=== PATIENT | male | born 1935 | race Caucasian/White ===

== ENCOUNTER 2023-03-07 16:19 | Inpatient (IN) | payer MEDICARE, BC ==
[2023-03-15] MEDS ORDERED: Acetaminophen 325 MG TAB PO PRN (14:37)
[2023-03-15] MEDS ORDERED: traMADol HCl 50 MG TAB PO PRN (14:37)
[2023-03-15] MEDS ORDERED: Ondansetron ODT 4 MG TAB SL PRN (16:35)
[2023-03-15] MEDS ORDERED: Bisacodyl 10 MG SUPP PR PRN (16:35)
[2023-03-15] MEDS ORDERED: Dextrose 50% Abboject 50 ML SYRINGE SLOW IVP PRN (16:37)
[2023-03-15] MEDS ORDERED: HumaLOG 300 UNITS/3 ML VIAL SC PRN (16:37)
[2023-03-15] MEDS ORDERED: Glucagon 1 MG/ML KIT IM PRN (16:37)
[2023-03-15] MEDS ORDERED: Potassium Chloride 10 MEQ TAB PO SCH (20:30)
[2023-03-15] MEDS: Rosuvastatin 10 MG TAB PO SCH (21:07)
[2023-03-15] MEDS: Midodrine HCl 5 MG TAB PO SCH (21:07)
[2023-03-15] MEDS: Apixaban 5 MG TAB PO SCH (21:07)
[2023-03-15] MEDS: Tamsulosin HCl 0.4 MG CAP PO SCH (21:07)
[2023-03-15] MEDS: Metoprolol Tartrate 25 MG TAB PO SCH (21:07)
[2023-03-16 06:20] LABS: #Basophils 0.1 thou/uL (0.0-0.2); #Eosinphils 0.4 thou/uL (0.0-0.7); #Lymphocytes 0.5 thou/uL (1.20-3.40); #Monocytes 0.5 thou/uL (0.11-0.59); #Neutrophils 4.1 thou/uL (1.40-6.50); %Basophils 1.6 % (0.0-1.0); %Eosinophils 6.6 % (0.0-10.0); %Lymphocytes 9.6 % (21.0-51.0); %Monocytes 9.1 % (0.0-10.0); %Neutrophils 73.1 % (42.0-75.0); ALT (SGPT) 36 U/L (8-55); AST (SGOT) 19 U/L (5-34); Alkaline Phosphatase 102 U/L (40-110); Anion Gap 13 mmol/L (10-20); BUN (Urea Nitrogen) 18 mg/dL (8.4-25.7); Bilirubin, Total 0.8 mg/dL (0.2-1.2); Calc. Creatinine Clearance 66 mL/min (70-130); Calcium 8.7 mg/dL (7.8-10.44); Carbon Dioxide 31 mmol/L (23-31); Chloride 94 mmol/L (98-107); Estimated GFR 61; Globulin 2.5 g/dL (2.4-3.5); Glucose 155 mg/dL (83-110); Hematocrit 46.2 % (42.0-52.0); Hemoglobin 14.6 g/dL (14.0-18.0); Mean Corpuscular HGB CONC 31.6 g/dL (32.0-36.0); Mean Corpuscular Hemoglobin 30.8 pg (27.0-31.0); Mean Corpuscular Volume 97.4 fl (78.0-98.0); Mean Platelet Volume 6.9 fL (7.4-10.4); Platelet Count 179 10x3/uL (130-400); Protein, Total 5.5 g/dL (5.8-8.1); RBC Distribution Width 14.3 % (11.5-14.5); Red Blood Cell (RBC) Count 4.74 mill/uL (4.70-6.10); Sodium 134 mmol/L (136-145); White Blood Cell (WBC) Count 5.7 10x3/uL (4.8-10.8)
[2023-03-16] MEDS: Potassium Chloride 10 MEQ TAB PO SCH ×3 (11:15→17:39)
[2023-03-16] MEDS: Apixaban 5 MG TAB PO SCH ×2 (11:18→21:09)
[2023-03-16] MEDS: Calcium Carbonate 600 MG + Vit D TAB PO SCH (11:18)
[2023-03-16] MEDS: Metoprolol Tartrate 25 MG TAB PO SCH ×2 (11:18→21:09)
[2023-03-16] MEDS: FLUoxetine HCl 10 MG CAP PO SCH (11:19)
[2023-03-16] MEDS: Torsemide 20 MG TAB PO SCH ×2 (11:19→15:44)
[2023-03-16] MEDS: Tamsulosin HCl 0.4 MG CAP PO SCH (11:19)
[2023-03-16] MEDS: Midodrine HCl 5 MG TAB PO SCH ×3 (11:19→21:09)
[2023-03-16] MEDS: Digoxin 0.125 MG TAB PO SCH (11:20)
[2023-03-16] MEDS: HumaLOG 300 UNITS/3 ML VIAL SC PRN ×2 (11:26→17:40)
[2023-03-16] MEDS ORDERED: Potassium Chloride 10 MEQ TAB PO SCH (11:45)
[2023-03-16] MEDS: Rosuvastatin 10 MG TAB PO SCH (21:09)
[2023-03-17 05:35] LABS: Digoxin 0.57 ng/mL (0.8-2.0)
[2023-03-17] MEDS: HumaLOG 300 UNITS/3 ML VIAL SC PRN ×3 (06:36→17:12)
[2023-03-17] MEDS: Midodrine HCl 5 MG TAB PO SCH ×3 (07:50→21:35)
[2023-03-17] MEDS: Apixaban 5 MG TAB PO SCH ×2 (07:50→21:35)
[2023-03-17] MEDS: Loperamide HCl 2 MG CAP PO PRN (07:50)
[2023-03-17] MEDS: Calcium Carbonate 600 MG + Vit D TAB PO SCH (07:51)
[2023-03-17] MEDS: FLUoxetine HCl 10 MG CAP PO SCH (07:51)
[2023-03-17] MEDS: Torsemide 20 MG TAB PO SCH ×2 (07:51→14:27)
[2023-03-17] MEDS: Digoxin 0.125 MG TAB PO SCH (07:52)
[2023-03-17] MEDS: Potassium Chloride 10 MEQ TAB PO SCH ×2 (07:52→17:10)
[2023-03-17] MEDS: Metoprolol Tartrate 25 MG TAB PO SCH ×2 (07:52→21:35)
[2023-03-17] MEDS: metFORMIN 500 MG TAB PO SCH (17:10)
[2023-03-17] MEDS: Rosuvastatin 10 MG TAB PO SCH (21:35)
[2023-03-17] MEDS: Tamsulosin HCl 0.4 MG CAP PO SCH (21:35)
[2023-03-18] MEDS: HumaLOG 300 UNITS/3 ML VIAL SC PRN ×3 (05:45→17:30)
[2023-03-18] MEDS: Calcium Carbonate 600 MG + Vit D TAB PO SCH (08:40)
[2023-03-18] MEDS: FLUoxetine HCl 10 MG CAP PO SCH (08:40)
[2023-03-18] MEDS: Midodrine HCl 5 MG TAB PO SCH ×3 (08:40→20:07)
[2023-03-18] MEDS: metFORMIN 500 MG TAB PO SCH ×2 (08:40→17:30)
[2023-03-18] MEDS: Torsemide 20 MG TAB PO SCH ×2 (08:41→15:08)
[2023-03-18] MEDS: Metoprolol Tartrate 25 MG TAB PO SCH ×2 (08:42→20:08)
[2023-03-18] MEDS: Digoxin 0.125 MG TAB PO SCH (08:42)
[2023-03-18] MEDS: Apixaban 5 MG TAB PO SCH ×2 (08:42→20:08)
[2023-03-18] MEDS: Potassium Chloride 10 MEQ TAB PO SCH ×2 (08:43→17:30)
[2023-03-18] MEDS: Loperamide HCl 2 MG CAP PO PRN (12:58)
[2023-03-18] MEDS: Tamsulosin HCl 0.4 MG CAP PO SCH (20:07)
[2023-03-18] MEDS: Rosuvastatin 10 MG TAB PO SCH (20:08)
[2023-03-19] MEDS: Calcium Carbonate 600 MG + Vit D TAB PO SCH (08:43)
[2023-03-19] MEDS: metFORMIN 500 MG TAB PO SCH ×2 (08:43→17:30)
[2023-03-19] MEDS: Midodrine HCl 5 MG TAB PO SCH ×3 (08:43→20:42)
[2023-03-19] MEDS: FLUoxetine HCl 10 MG CAP PO SCH (08:43)
[2023-03-19] MEDS: Digoxin 0.125 MG TAB PO SCH (08:44)
[2023-03-19] MEDS: Potassium Chloride 10 MEQ TAB PO SCH ×2 (08:44→17:30)
[2023-03-19] MEDS: Torsemide 20 MG TAB PO SCH ×2 (08:44→14:31)
[2023-03-19] MEDS: Apixaban 5 MG TAB PO SCH ×2 (08:44→20:40)
[2023-03-19] MEDS: Metoprolol Tartrate 25 MG TAB PO SCH ×2 (08:44→20:41)
[2023-03-19] MEDS: HumaLOG 300 UNITS/3 ML VIAL SC PRN (11:59)
[2023-03-19] MEDS: Rosuvastatin 10 MG TAB PO SCH (20:40)
[2023-03-19] MEDS: Tamsulosin HCl 0.4 MG CAP PO SCH (20:40)
[2023-03-20 06:19] LABS: Anion Gap 17 mmol/L (10-20); BUN (Urea Nitrogen) 26 mg/dL (8.4-25.7); CRP (Inflammatory) 4.43 mg/dL (= or < 0.5); Calc. Creatinine Clearance 51 mL/min (70-130); Calcium 8.9 mg/dL (7.8-10.44); Carbon Dioxide 29 mmol/L (23-31); Chloride 94 mmol/L (98-107); Estimated GFR 45; Glucose 158 mg/dL (83-110); Magnesium 1.2 mg/dL (1.6-2.6); Potassium 4.2 mmol/L (3.5-5.1); Sodium 136 mmol/L (136-145)
[2023-03-20] MEDS: Calcium Carbonate 600 MG + Vit D TAB PO SCH (08:12)
[2023-03-20] MEDS: Midodrine HCl 5 MG TAB PO SCH ×3 (08:12→20:51)
[2023-03-20] MEDS: Potassium Chloride 10 MEQ TAB PO SCH ×2 (08:12→16:56)
[2023-03-20] MEDS: Metoprolol Tartrate 25 MG TAB PO SCH ×2 (08:12→20:51)
[2023-03-20] MEDS: Digoxin 0.125 MG TAB PO SCH (08:13)
[2023-03-20] MEDS: metFORMIN 500 MG TAB PO SCH ×2 (08:13→16:56)
[2023-03-20] MEDS: FLUoxetine HCl 10 MG CAP PO SCH (08:13)
[2023-03-20] MEDS: Apixaban 5 MG TAB PO SCH ×2 (08:13→20:51)
[2023-03-20] MEDS: Empagliflozin 10 MG TAB PO SCH (08:14)
[2023-03-20] MEDS: Torsemide 20 MG TAB PO SCH (09:26)
[2023-03-20] MEDS: HumaLOG 300 UNITS/3 ML VIAL SC PRN (11:43)
[2023-03-20 14:39] LABS: Hemoglobin A1c 7.3 % (4.0-6.0)
[2023-03-20] MEDS ORDERED: Magnesium 2 GM/50 ML(in water) 2 GM in Premix Bag 1 BAG IVPB SCH (15:30)
[2023-03-20] MEDS ORDERED: Magnesium Sulfate 4 GM in Sodium Chloride 0.9% 250 ML 250 ML IVPB SCH (15:45)
[2023-03-20] MEDS: Tamsulosin HCl 0.4 MG CAP PO SCH (20:51)
[2023-03-20] MEDS: Rosuvastatin 10 MG TAB PO SCH (20:51)
[2023-03-20] MEDS: Magnesium 2 GM/50 ML(in water) 2 GM in Premix Bag 1 BAG IVPB SCH ×2 (20:57→21:27)
[2023-03-21 06:06] LABS: Anion Gap 15 mmol/L (10-20); BUN (Urea Nitrogen) 29 mg/dL (8.4-25.7); Calc. Creatinine Clearance 46 mL/min (70-130); Carbon Dioxide 30 mmol/L (23-31); Chloride 93 mmol/L (98-107); Estimated GFR 39; Glucose 138 mg/dL (83-110); Potassium 4.1 mmol/L (3.5-5.1); Sodium 134 mmol/L (136-145)
[2023-03-21] MEDS: metFORMIN 500 MG TAB PO SCH ×2 (08:16→17:32)
[2023-03-21] MEDS: Calcium Carbonate 600 MG + Vit D TAB PO SCH (08:16)
[2023-03-21] MEDS: Empagliflozin 10 MG TAB PO SCH (08:16)
[2023-03-21] MEDS: Potassium Chloride 10 MEQ TAB PO SCH ×2 (08:17→17:32)
[2023-03-21] MEDS: FLUoxetine HCl 10 MG CAP PO SCH (08:17)
[2023-03-21] MEDS: Digoxin 0.125 MG TAB PO SCH (08:17)
[2023-03-21] MEDS: Metoprolol Tartrate 25 MG TAB PO SCH ×2 (08:17→22:05)
[2023-03-21] MEDS: Apixaban 5 MG TAB PO SCH ×2 (08:18→21:18)
[2023-03-21] MEDS: Midodrine HCl 5 MG TAB PO SCH ×3 (08:18→21:18)
[2023-03-21] MEDS: Cephalexin 500 MG CAP PO SCH ×2 (08:21→21:18)
[2023-03-21] MEDS: HumaLOG 300 UNITS/3 ML VIAL SC PRN (12:05)
[2023-03-21] MEDS: Rosuvastatin 10 MG TAB PO SCH (21:18)
[2023-03-21] MEDS: Tamsulosin HCl 0.4 MG CAP PO SCH (21:18)
[2023-03-22] MEDS ORDERED: Apixaban 2.5 MG TAB PO SCH (03:12)
[2023-03-22 06:04] LABS: #Basophils 0.1 thou/uL (0.0-0.2); #Eosinphils 0.3 thou/uL (0.0-0.7); #Lymphocytes 0.5 thou/uL (1.20-3.40); #Monocytes 0.8 thou/uL (0.11-0.59); %Basophils 1.4 % (0.0-1.0); %Eosinophils 4.4 % (0.0-10.0); %Lymphocytes 6.2 % (21.0-51.0); %Monocytes 10.6 % (0.0-10.0); %Neutrophils 77.5 % (42.0-75.0); Hematocrit 32.4 % (42.0-52.0); Hemoglobin 11.3 g/dL (14.0-18.0); Mean Corpuscular HGB CONC 34.9 g/dL (32.0-36.0); Mean Corpuscular Hemoglobin 33.7 pg (27.0-31.0); Mean Corpuscular Volume 96.4 fl (78.0-98.0); Mean Platelet Volume 7.7 fL (7.4-10.4); Platelet Count 299 10x3/uL (130-400); RBC Distribution Width 14.3 % (11.5-14.5); Red Blood Cell (RBC) Count 3.36 mill/uL (4.70-6.10); White Blood Cell (WBC) Count 7.8 10x3/uL (4.8-10.8)
[2023-03-22 06:16] LABS: Magnesium 1.8 mg/dL (1.6-2.6); Phosphorus 2.9 mg/dL (2.3-4.7)
[2023-03-22 06:21] LABS: ALT (SGPT) 22 U/L (8-55); AST (SGOT) 15 U/L (5-34); Albumin 3.2 g/dL (3.4-4.8); Alkaline Phosphatase 94 U/L (40-110); Anion Gap 16 mmol/L (10-20); BUN (Urea Nitrogen) 29 mg/dL (8.4-25.7); Bilirubin, Total 0.8 mg/dL (0.2-1.2); Calc. Creatinine Clearance 52 mL/min (70-130); Calcium 8.9 mg/dL (7.8-10.44); Carbon Dioxide 29 mmol/L (23-31); Chloride 95 mmol/L (98-107); Estimated GFR 46; Globulin 2.7 g/dL (2.4-3.5); Glucose 134 mg/dL (83-110); Potassium 4.3 mmol/L (3.5-5.1); Protein, Total 5.9 g/dL (5.8-8.1); Sodium 136 mmol/L (136-145)
[2023-03-22 06:25] LABS: Digoxin 0.82 ng/mL (0.8-2.0)
[2023-03-22] MEDS: FLUoxetine HCl 10 MG CAP PO SCH (08:34)
[2023-03-22] MEDS: Potassium Chloride 10 MEQ TAB PO SCH ×2 (08:34→17:45)
[2023-03-22] MEDS: Cephalexin 500 MG CAP PO SCH ×2 (08:34→21:43)
[2023-03-22] MEDS: Digoxin 0.125 MG TAB PO SCH (08:34)
[2023-03-22] MEDS: Calcium Carbonate 600 MG + Vit D TAB PO SCH (08:34)
[2023-03-22] MEDS: Midodrine HCl 5 MG TAB PO SCH ×3 (08:34→21:43)
[2023-03-22] MEDS: Metoprolol Tartrate 25 MG TAB PO SCH ×2 (08:35→21:44)
[2023-03-22] MEDS: Empagliflozin 10 MG TAB PO SCH (08:36)
[2023-03-22] MEDS ORDERED: Magnesium Chloride 64 MG TAB PO SCH (10:30)
[2023-03-22] MEDS: HumaLOG 300 UNITS/3 ML VIAL SC PRN ×2 (12:16→17:47)
[2023-03-22] MEDS: Torsemide 20 MG TAB PO SCH (12:21)
[2023-03-22] MEDS ORDERED: metFORMIN 500 MG TAB PO SCH (20:30)
[2023-03-22] MEDS: Rosuvastatin 10 MG TAB PO SCH (21:43)
[2023-03-22] MEDS: Apixaban 2.5 MG TAB PO SCH (21:44)
[2023-03-22] MEDS: Magnesium Chloride 64 MG TAB PO SCH (21:47)
[2023-03-23] MEDS ORDERED: metFORMIN 500 MG TAB PO SCH (08:00)
[2023-03-23] MEDS: Magnesium Chloride 64 MG TAB PO SCH ×2 (09:16→21:10)
[2023-03-23] MEDS: Calcium Carbonate 600 MG + Vit D TAB PO SCH (09:17)
[2023-03-23] MEDS: Cephalexin 500 MG CAP PO SCH ×2 (09:17→21:09)
[2023-03-23] MEDS: Apixaban 2.5 MG TAB PO SCH ×2 (09:18→21:10)
[2023-03-23] MEDS: Digoxin 0.125 MG TAB PO SCH (09:18)
[2023-03-23] MEDS: Torsemide 20 MG TAB PO SCH (09:18)
[2023-03-23] MEDS: FLUoxetine HCl 10 MG CAP PO SCH (09:18)
[2023-03-23] MEDS: metFORMIN 500 MG TAB PO SCH ×2 (09:18→17:22)
[2023-03-23] MEDS: Potassium Chloride 10 MEQ TAB PO SCH ×2 (09:18→17:22)
[2023-03-23] MEDS: Empagliflozin 10 MG TAB PO SCH (09:19)
[2023-03-23] MEDS: Midodrine HCl 5 MG TAB PO SCH ×3 (09:19→21:10)
[2023-03-23] MEDS: Metoprolol Tartrate 25 MG TAB PO SCH ×2 (09:19→21:10)
[2023-03-23] MEDS ORDERED: Metoprolol Tartrate 25 MG TAB PO SCH (11:00)
[2023-03-23] MEDS: HumaLOG 300 UNITS/3 ML VIAL SC PRN (11:44)
[2023-03-23 11:59] LABS: Anion Gap 13 mmol/L (10-20); BUN (Urea Nitrogen) 26 mg/dL (8.4-25.7); Calc. Creatinine Clearance 49 mL/min (70-130); Calcium 9.2 mg/dL (7.8-10.44); Carbon Dioxide 28 mmol/L (23-31); Chloride 98 mmol/L (98-107); Estimated GFR 46; Glucose 205 mg/dL (83-110); Magnesium 1.8 mg/dL (1.6-2.6); Potassium 4.1 mmol/L (3.5-5.1); Sodium 135 mmol/L (136-145)
[2023-03-23 12:00] LABS: Digoxin 0.79 ng/mL (0.8-2.0)
[2023-03-23] MEDS ORDERED: Digoxin 0.125 MG TAB PO SCH (12:00)
[2023-03-23] MEDS ORDERED: Torsemide 20 MG TAB PO SCH (14:00)
[2023-03-23] MEDS: Tamsulosin HCl 0.4 MG CAP PO SCH (21:09)
[2023-03-23] MEDS: Rosuvastatin 10 MG TAB PO SCH (21:10)
[2023-03-23] MEDS: Lantus 1000 UNITS/10 ML VIAL SC SCH (21:10)
[2023-03-24 05:45] LABS: Digoxin 0.77 ng/mL (0.8-2.0)
[2023-03-24 05:50] LABS: Anion Gap 15 mmol/L (10-20); BUN (Urea Nitrogen) 24 mg/dL (8.4-25.7); Calc. Creatinine Clearance 47 mL/min (70-130); Calcium 9.2 mg/dL (7.8-10.44); Carbon Dioxide 29 mmol/L (23-31); Chloride 97 mmol/L (98-107); Estimated GFR 45; Glucose 115 mg/dL (83-110); Magnesium 1.6 mg/dL (1.6-2.6); Potassium 3.7 mmol/L (3.5-5.1); Sodium 137 mmol/L (136-145)
[2023-03-24] MEDS: Magnesium Chloride 64 MG TAB PO SCH ×2 (08:39→21:11)
[2023-03-24] MEDS: Cephalexin 500 MG CAP PO SCH ×2 (08:40→20:58)
[2023-03-24] MEDS: metFORMIN 500 MG TAB PO SCH ×2 (08:40→17:42)
[2023-03-24] MEDS: Calcium Carbonate 600 MG + Vit D TAB PO SCH (08:40)
[2023-03-24] MEDS: Midodrine HCl 5 MG TAB PO SCH ×3 (08:40→20:58)
[2023-03-24] MEDS: FLUoxetine HCl 10 MG CAP PO SCH (08:40)
[2023-03-24] MEDS: Apixaban 2.5 MG TAB PO SCH ×2 (08:40→20:58)
[2023-03-24] MEDS: Potassium Chloride 10 MEQ TAB PO SCH ×2 (08:40→17:42)
[2023-03-24] MEDS: Empagliflozin 10 MG TAB PO SCH (08:40)
[2023-03-24] MEDS: Metoprolol Tartrate 25 MG TAB PO SCH ×2 (08:42→23:23)
[2023-03-24] MEDS: Torsemide 20 MG TAB PO SCH ×2 (08:45→11:49)
[2023-03-24] MEDS: HumaLOG 300 UNITS/3 ML VIAL SC PRN (11:47)
[2023-03-24] MEDS: Tamsulosin HCl 0.4 MG CAP PO SCH (20:58)
[2023-03-24] MEDS: Rosuvastatin 10 MG TAB PO SCH (20:58)
[2023-03-24] MEDS: Lantus 1000 UNITS/10 ML VIAL SC SCH (20:59)
[2023-03-25] MEDS: Cephalexin 500 MG CAP PO SCH ×2 (07:59→20:42)
[2023-03-25] MEDS: FLUoxetine HCl 10 MG CAP PO SCH (07:59)
[2023-03-25] MEDS: Apixaban 2.5 MG TAB PO SCH ×2 (08:00→20:42)
[2023-03-25] MEDS: metFORMIN 500 MG TAB PO SCH ×2 (08:00→17:03)
[2023-03-25] MEDS: Potassium Chloride 10 MEQ TAB PO SCH ×2 (08:00→17:03)
[2023-03-25] MEDS: Digoxin 0.125 MG TAB PO SCH (08:00)
[2023-03-25] MEDS: Calcium Carbonate 600 MG + Vit D TAB PO SCH (08:00)
[2023-03-25] MEDS: Empagliflozin 10 MG TAB PO SCH (08:00)
[2023-03-25] MEDS: Midodrine HCl 5 MG TAB PO SCH ×3 (08:00→20:42)
[2023-03-25] MEDS: Metoprolol Tartrate 25 MG TAB PO SCH ×3 (08:01→21:13)
[2023-03-25] MEDS: Magnesium Chloride 64 MG TAB PO SCH ×2 (08:01→21:12)
[2023-03-25] MEDS: HumaLOG 300 UNITS/3 ML VIAL SC PRN (17:03)
[2023-03-25] MEDS: Lantus 1000 UNITS/10 ML VIAL SC SCH (20:41)
[2023-03-25] MEDS: Tamsulosin HCl 0.4 MG CAP PO SCH (20:42)
[2023-03-25] MEDS: Rosuvastatin 10 MG TAB PO SCH (20:42)
[2023-03-26 06:08] LABS: #Basophils 0.1 thou/uL (0.0-0.2); #Eosinphils 0.2 thou/uL (0.0-0.7); #Lymphocytes 0.7 thou/uL (1.20-3.40); #Monocytes 0.6 thou/uL (0.11-0.59); #Neutrophils 4.2 thou/uL (1.40-6.50); %Basophils 1.7 % (0.0-1.0); %Lymphocytes 11.6 % (21.0-51.0); %Monocytes 10.8 % (0.0-10.0); Hematocrit 33.5 % (42.0-52.0); Hemoglobin 10.9 g/dL (14.0-18.0); Mean Corpuscular HGB CONC 32.5 g/dL (32.0-36.0); Mean Corpuscular Hemoglobin 31.5 pg (27.0-31.0); Mean Corpuscular Volume 96.8 fl (78.0-98.0); Mean Platelet Volume 7.8 fL (7.4-10.4); Platelet Count 240 10x3/uL (130-400); RBC Distribution Width 14.3 % (11.5-14.5); Red Blood Cell (RBC) Count 3.46 mill/uL (4.70-6.10); White Blood Cell (WBC) Count 5.7 10x3/uL (4.8-10.8)
[2023-03-26 06:18] LABS: Anion Gap 13 mmol/L (10-20); BUN (Urea Nitrogen) 18 mg/dL (8.4-25.7); Calc. Creatinine Clearance 58 mL/min (70-130); Calcium 8.8 mg/dL (7.8-10.44); Carbon Dioxide 25 mmol/L (23-31); Chloride 99 mmol/L (98-107); Estimated GFR 55; Glucose 107 mg/dL (83-110); Potassium 3.8 mmol/L (3.5-5.1); Sodium 133 mmol/L (136-145)
[2023-03-26] MEDS: Magnesium Chloride 64 MG TAB PO SCH ×2 (08:37→20:57)
[2023-03-26] MEDS: Calcium Carbonate 600 MG + Vit D TAB PO SCH (08:38)
[2023-03-26] MEDS: Cephalexin 500 MG CAP PO SCH ×2 (08:38→20:58)
[2023-03-26] MEDS: Potassium Chloride 10 MEQ TAB PO SCH ×2 (08:39→17:19)
[2023-03-26] MEDS: Empagliflozin 10 MG TAB PO SCH (08:39)
[2023-03-26] MEDS: Metoprolol Tartrate 25 MG TAB PO SCH ×2 (08:39→20:58)
[2023-03-26] MEDS: Apixaban 2.5 MG TAB PO SCH (08:39)
[2023-03-26] MEDS: metFORMIN 500 MG TAB PO SCH ×2 (08:39→17:19)
[2023-03-26] MEDS: FLUoxetine HCl 10 MG CAP PO SCH (08:40)
[2023-03-26] MEDS: Midodrine HCl 5 MG TAB PO SCH ×3 (08:40→20:58)
[2023-03-26] MEDS: Torsemide 20 MG TAB PO SCH (11:14)
[2023-03-26] MEDS: HumaLOG 300 UNITS/3 ML VIAL SC PRN (11:15)
[2023-03-26] MEDS: Lantus 1000 UNITS/10 ML VIAL SC SCH (20:56)
[2023-03-26] MEDS: Tamsulosin HCl 0.4 MG CAP PO SCH (20:58)
[2023-03-26] MEDS: Apixaban 5 MG TAB PO SCH (20:58)
[2023-03-26] MEDS: Rosuvastatin 10 MG TAB PO SCH (20:58)
[2023-03-27] MEDS: Potassium Chloride 10 MEQ TAB PO SCH ×2 (08:27→17:55)
[2023-03-27] MEDS: Metoprolol Tartrate 25 MG TAB PO SCH ×2 (08:27→21:49)
[2023-03-27] MEDS: FLUoxetine HCl 10 MG CAP PO SCH (08:27)
[2023-03-27] MEDS: metFORMIN 500 MG TAB PO SCH ×2 (08:27→17:56)
[2023-03-27] MEDS: Apixaban 5 MG TAB PO SCH ×2 (08:27→21:49)
[2023-03-27] MEDS: Calcium Carbonate 600 MG + Vit D TAB PO SCH (08:27)
[2023-03-27] MEDS: Midodrine HCl 5 MG TAB PO SCH ×3 (08:28→21:49)
[2023-03-27] MEDS: Empagliflozin 10 MG TAB PO SCH (08:28)
[2023-03-27] MEDS: Magnesium Chloride 64 MG TAB PO SCH ×2 (08:29→21:38)
[2023-03-27] MEDS: Cephalexin 500 MG CAP PO SCH (08:34)
[2023-03-27] MEDS: Digoxin 0.125 MG TAB PO SCH (08:34)
[2023-03-27] MEDS: Lantus 1000 UNITS/10 ML VIAL SC SCH (21:38)
[2023-03-27] MEDS: Tamsulosin HCl 0.4 MG CAP PO SCH (21:49)
[2023-03-27] MEDS: Rosuvastatin 10 MG TAB PO SCH (21:49)
[2023-03-28] MEDS: Magnesium Chloride 64 MG TAB PO SCH ×2 (08:41→20:58)
[2023-03-28] MEDS: Midodrine HCl 5 MG TAB PO SCH ×3 (08:42→21:00)
[2023-03-28] MEDS: Calcium Carbonate 600 MG + Vit D TAB PO SCH (08:42)
[2023-03-28] MEDS: Apixaban 5 MG TAB PO SCH ×2 (08:42→21:00)
[2023-03-28] MEDS: Metoprolol Tartrate 25 MG TAB PO SCH ×2 (08:42→20:56)
[2023-03-28] MEDS: Empagliflozin 10 MG TAB PO SCH (08:43)
[2023-03-28] MEDS: metFORMIN 500 MG TAB PO SCH ×2 (08:43→17:20)
[2023-03-28] MEDS: Potassium Chloride 10 MEQ TAB PO SCH ×2 (08:43→17:20)
[2023-03-28] MEDS: FLUoxetine HCl 10 MG CAP PO SCH (08:46)
[2023-03-28] MEDS: Torsemide 20 MG TAB PO SCH (11:47)
[2023-03-28] MEDS: Senokot S 8.6-50 MG TAB PO PRN (11:51)
[2023-03-28] MEDS: HumaLOG 300 UNITS/3 ML VIAL SC PRN (12:09)
[2023-03-28] MEDS: Tamsulosin HCl 0.4 MG CAP PO SCH (21:00)
[2023-03-28] MEDS: Rosuvastatin 10 MG TAB PO SCH (21:00)
[2023-03-28] MEDS: Lantus 1000 UNITS/10 ML VIAL SC SCH (21:00)
[2023-03-29] MEDS: Calcium Carbonate 600 MG + Vit D TAB PO SCH (08:57)
[2023-03-29] MEDS: Apixaban 5 MG TAB PO SCH ×2 (08:57→20:34)
[2023-03-29] MEDS: Midodrine HCl 5 MG TAB PO SCH ×3 (08:57→20:34)
[2023-03-29] MEDS: FLUoxetine HCl 10 MG CAP PO SCH (08:57)
[2023-03-29] MEDS: Empagliflozin 10 MG TAB PO SCH (08:58)
[2023-03-29] MEDS: Digoxin 0.125 MG TAB PO SCH (08:58)
[2023-03-29] MEDS: Metoprolol Tartrate 25 MG TAB PO SCH ×2 (08:58→20:34)
[2023-03-29] MEDS: metFORMIN 500 MG TAB PO SCH ×2 (08:58→16:43)
[2023-03-29] MEDS: Potassium Chloride 10 MEQ TAB PO SCH ×2 (08:58→16:43)
[2023-03-29] MEDS: Magnesium Chloride 64 MG TAB PO SCH ×2 (09:40→20:34)
[2023-03-29] MEDS: Tamsulosin HCl 0.4 MG CAP PO SCH (20:34)
[2023-03-29] MEDS: Rosuvastatin 10 MG TAB PO SCH (20:35)
[2023-03-29] MEDS: Lantus 1000 UNITS/10 ML VIAL SC SCH (20:35)
[2023-03-30 07:07] LABS: #Basophils 0.1 thou/uL (0.0-0.2); #Eosinphils 0.2 thou/uL (0.0-0.7); #Lymphocytes 0.8 thou/uL (1.20-3.40); #Monocytes 0.6 thou/uL (0.11-0.59); #Neutrophils 4.3 thou/uL (1.40-6.50); %Basophils 1.8 % (0.0-1.0); %Eosinophils 3.8 % (0.0-10.0); %Lymphocytes 13.9 % (21.0-51.0); %Monocytes 9.9 % (0.0-10.0); %Neutrophils 70.6 % (42.0-75.0); Hematocrit 33.9 % (42.0-52.0); Hemoglobin 11.8 g/dL (14.0-18.0); Mean Corpuscular HGB CONC 34.9 g/dL (32.0-36.0); Mean Corpuscular Hemoglobin 33.3 pg (27.0-31.0); Mean Corpuscular Volume 95.6 fl (78.0-98.0); Mean Platelet Volume 7.2 fL (7.4-10.4); Platelet Count 220 10x3/uL (130-400); Red Blood Cell (RBC) Count 3.55 mill/uL (4.70-6.10); White Blood Cell (WBC) Count 6.1 10x3/uL (4.8-10.8)
[2023-03-30 07:23] LABS: Anion Gap 15 mmol/L (10-20); BUN (Urea Nitrogen) 18 mg/dL (8.4-25.7); Calc. Creatinine Clearance 53 mL/min (70-130); Calcium 8.9 mg/dL (7.8-10.44); Carbon Dioxide 24 mmol/L (23-31); Chloride 101 mmol/L (98-107); Estimated GFR 50; Glucose 109 mg/dL (83-110); Sodium 136 mmol/L (136-145)
[2023-03-30] MEDS: Calcium Carbonate 600 MG + Vit D TAB PO SCH (08:53)
[2023-03-30] MEDS: Empagliflozin 10 MG TAB PO SCH (08:53)
[2023-03-30] MEDS: Potassium Chloride 10 MEQ TAB PO SCH ×2 (08:53→17:05)
[2023-03-30] MEDS: metFORMIN 500 MG TAB PO SCH ×2 (08:53→17:05)
[2023-03-30] MEDS: Apixaban 5 MG TAB PO SCH ×2 (08:53→21:44)
[2023-03-30] MEDS: Magnesium Chloride 64 MG TAB PO SCH ×2 (08:53→21:44)
[2023-03-30] MEDS: Metoprolol Tartrate 25 MG TAB PO SCH ×2 (08:53→21:44)
[2023-03-30] MEDS: Midodrine HCl 5 MG TAB PO SCH ×3 (08:55→21:44)
[2023-03-30] MEDS: FLUoxetine HCl 10 MG CAP PO SCH (09:05)
[2023-03-30] MEDS: Torsemide 20 MG TAB PO SCH (11:43)
[2023-03-30] MEDS: HumaLOG 300 UNITS/3 ML VIAL SC PRN (17:06)
[2023-03-30] MEDS: Rosuvastatin 10 MG TAB PO SCH (21:44)
[2023-03-30] MEDS: Tamsulosin HCl 0.4 MG CAP PO SCH (21:44)
[2023-03-30] MEDS: Lantus 1000 UNITS/10 ML VIAL SC SCH (21:45)
[2023-03-31] MEDS: metFORMIN 500 MG TAB PO SCH ×2 (08:03→17:01)
[2023-03-31] MEDS: FLUoxetine HCl 10 MG CAP PO SCH (08:03)
[2023-03-31] MEDS: Potassium Chloride 10 MEQ TAB PO SCH ×2 (08:03→17:01)
[2023-03-31] MEDS: Apixaban 5 MG TAB PO SCH ×2 (08:04→20:30)
[2023-03-31] MEDS: Calcium Carbonate 600 MG + Vit D TAB PO SCH (08:04)
[2023-03-31] MEDS: Empagliflozin 10 MG TAB PO SCH (08:04)
[2023-03-31] MEDS: Digoxin 0.125 MG TAB PO SCH (08:04)
[2023-03-31] MEDS: Metoprolol Tartrate 25 MG TAB PO SCH ×2 (08:04→20:30)
[2023-03-31] MEDS: Midodrine HCl 5 MG TAB PO SCH ×3 (08:04→20:30)
[2023-03-31] MEDS: Magnesium Chloride 64 MG TAB PO SCH ×2 (08:05→20:30)
[2023-03-31] MEDS: Rosuvastatin 10 MG TAB PO SCH (20:30)
[2023-03-31] MEDS: Tamsulosin HCl 0.4 MG CAP PO SCH (20:30)
[2023-03-31] MEDS: Lantus 1000 UNITS/10 ML VIAL SC SCH (20:31)
[2023-04-01 06:09] VITALS: BMI 30.5
[2023-04-01] MEDS: Senokot S 8.6-50 MG TAB PO PRN (06:14)
[2023-04-01] MEDS: Magnesium Chloride 64 MG TAB PO SCH ×2 (07:59→20:32)
[2023-04-01] MEDS: Potassium Chloride 10 MEQ TAB PO SCH ×2 (07:59→16:50)
[2023-04-01] MEDS: Empagliflozin 10 MG TAB PO SCH (07:59)
[2023-04-01] MEDS: metFORMIN 500 MG TAB PO SCH ×2 (07:59→16:50)
[2023-04-01] MEDS: Metoprolol Tartrate 25 MG TAB PO SCH ×2 (07:59→20:29)
[2023-04-01] MEDS: Midodrine HCl 5 MG TAB PO SCH ×3 (07:59→20:30)
[2023-04-01] MEDS: Apixaban 5 MG TAB PO SCH ×2 (07:59→20:29)
[2023-04-01] MEDS: Calcium Carbonate 600 MG + Vit D TAB PO SCH (07:59)
[2023-04-01] MEDS: FLUoxetine HCl 10 MG CAP PO SCH (08:00)
[2023-04-01] MEDS: Torsemide 20 MG TAB PO SCH (11:56)
[2023-04-01] MEDS: Lantus 1000 UNITS/10 ML VIAL SC SCH (20:27)
[2023-04-01] MEDS: Tamsulosin HCl 0.4 MG CAP PO SCH (20:29)
[2023-04-01] MEDS: Rosuvastatin 10 MG TAB PO SCH (20:30)
[2023-04-02] MEDS: Calcium Carbonate 600 MG + Vit D TAB PO SCH (07:54)
[2023-04-02] MEDS: Magnesium Chloride 64 MG TAB PO SCH ×2 (07:54→20:45)
[2023-04-02] MEDS: metFORMIN 500 MG TAB PO SCH ×2 (07:54→16:58)
[2023-04-02] MEDS: Potassium Chloride 10 MEQ TAB PO SCH ×2 (07:54→16:58)
[2023-04-02] MEDS: FLUoxetine HCl 10 MG CAP PO SCH (07:55)
[2023-04-02] MEDS: Digoxin 0.125 MG TAB PO SCH (07:55)
[2023-04-02] MEDS: Metoprolol Tartrate 25 MG TAB PO SCH ×2 (07:56→20:46)
[2023-04-02] MEDS: Apixaban 5 MG TAB PO SCH ×2 (07:56→20:46)
[2023-04-02] MEDS: Empagliflozin 10 MG TAB PO SCH (07:56)
[2023-04-02] MEDS: Midodrine HCl 5 MG TAB PO SCH ×3 (07:56→20:45)
[2023-04-02] MEDS: HumaLOG 300 UNITS/3 ML VIAL SC PRN (11:40)
[2023-04-02] MEDS: Tamsulosin HCl 0.4 MG CAP PO SCH (20:45)
[2023-04-02] MEDS: Rosuvastatin 10 MG TAB PO SCH (20:45)
[2023-04-02] MEDS: Lantus 1000 UNITS/10 ML VIAL SC SCH (20:46)
[2023-04-03] MEDS: Potassium Chloride 10 MEQ TAB PO SCH ×2 (07:52→16:51)
[2023-04-03] MEDS: Calcium Carbonate 600 MG + Vit D TAB PO SCH (07:52)
[2023-04-03] MEDS: metFORMIN 500 MG TAB PO SCH ×2 (07:52→16:51)
[2023-04-03] MEDS: Magnesium Chloride 64 MG TAB PO SCH ×2 (07:52→22:05)
[2023-04-03] MEDS: Apixaban 5 MG TAB PO SCH ×2 (07:53→22:05)
[2023-04-03] MEDS: FLUoxetine HCl 10 MG CAP PO SCH (07:53)
[2023-04-03] MEDS: Metoprolol Tartrate 25 MG TAB PO SCH ×2 (07:53→22:05)
[2023-04-03] MEDS: Empagliflozin 10 MG TAB PO SCH (07:53)
[2023-04-03] MEDS: Midodrine HCl 5 MG TAB PO SCH ×3 (07:53→22:05)
[2023-04-03] MEDS: Torsemide 20 MG TAB PO SCH (11:07)
[2023-04-03] MEDS: Tamsulosin HCl 0.4 MG CAP PO SCH (22:05)
[2023-04-03] MEDS: Rosuvastatin 10 MG TAB PO SCH (22:05)
[2023-04-03] MEDS: Lantus 1000 UNITS/10 ML VIAL SC SCH (22:05)
[2023-04-04 05:48] LABS: #Basophils 0.1 thou/uL (0.0-0.2); #Eosinphils 0.2 thou/uL (0.0-0.7); #Lymphocytes 0.8 thou/uL (1.20-3.40); #Monocytes 0.7 thou/uL (0.11-0.59); #Neutrophils 4.2 thou/uL (1.40-6.50); %Basophils 1.9 % (0.0-1.0); %Lymphocytes 12.6 % (21.0-51.0); %Monocytes 12.1 % (0.0-10.0); %Neutrophils 70.5 % (42.0-75.0); Hematocrit 33.3 % (42.0-52.0); Hemoglobin 11.7 g/dL (14.0-18.0); Mean Corpuscular HGB CONC 35.2 g/dL (32.0-36.0); Mean Corpuscular Hemoglobin 33.2 pg (27.0-31.0); Mean Corpuscular Volume 94.5 fl (78.0-98.0); Mean Platelet Volume 7.7 fL (7.4-10.4); Platelet Count 202 10x3/uL (130-400); Red Blood Cell (RBC) Count 3.52 mill/uL (4.70-6.10)
[2023-04-04 06:00] LABS: Anion Gap 15 mmol/L (10-20); BUN (Urea Nitrogen) 24 mg/dL (8.4-25.7); Calc. Creatinine Clearance 43 mL/min (70-130); Calcium 8.9 mg/dL (7.8-10.44); Carbon Dioxide 23 mmol/L (23-31); Chloride 100 mmol/L (98-107); Estimated GFR 39; Glucose 106 mg/dL (83-110); Potassium 3.7 mmol/L (3.5-5.1); Sodium 134 mmol/L (136-145)
[2023-04-04] MEDS: Magnesium Chloride 64 MG TAB PO SCH ×2 (08:03→20:57)
[2023-04-04] MEDS: Metoprolol Tartrate 25 MG TAB PO SCH ×2 (08:04→20:58)
[2023-04-04] MEDS: Empagliflozin 10 MG TAB PO SCH (08:04)
[2023-04-04] MEDS: Potassium Chloride 10 MEQ TAB PO SCH ×2 (08:04→17:06)
[2023-04-04] MEDS: Calcium Carbonate 600 MG + Vit D TAB PO SCH (08:04)
[2023-04-04] MEDS: FLUoxetine HCl 10 MG CAP PO SCH (08:04)
[2023-04-04] MEDS: Midodrine HCl 5 MG TAB PO SCH ×3 (08:04→20:58)
[2023-04-04] MEDS: Apixaban 5 MG TAB PO SCH (08:04)
[2023-04-04] MEDS: metFORMIN 500 MG TAB PO SCH ×2 (08:04→17:06)
[2023-04-04] MEDS: Digoxin 0.125 MG TAB PO SCH (08:11)
[2023-04-04 20:44] VITALS: TEMP 97.7
[2023-04-04] MEDS: Tamsulosin HCl 0.4 MG CAP PO SCH (20:57)
[2023-04-04] MEDS: Apixaban 2.5 MG TAB PO SCH (20:58)
[2023-04-04] MEDS: Rosuvastatin 10 MG TAB PO SCH (20:58)
[2023-04-04] MEDS: Lantus 1000 UNITS/10 ML VIAL SC SCH (20:58)
[2023-04-05] MEDS: Potassium Chloride 10 MEQ TAB PO SCH (08:13)
[2023-04-05] MEDS: Apixaban 2.5 MG TAB PO SCH (08:13)
[2023-04-05] MEDS: Metoprolol Tartrate 25 MG TAB PO SCH (08:13)
[2023-04-05] MEDS: Midodrine HCl 5 MG TAB PO SCH (08:13)
[2023-04-05] MEDS: Calcium Carbonate 600 MG + Vit D TAB PO SCH (08:13)
[2023-04-05] MEDS: FLUoxetine HCl 10 MG CAP PO SCH (08:13)
[2023-04-05] MEDS: Empagliflozin 10 MG TAB PO SCH (08:13)
[2023-04-05] MEDS: metFORMIN 500 MG TAB PO SCH (08:13)
[2023-04-05] MEDS: Magnesium Chloride 64 MG TAB PO SCH (08:14)
[2023-04-05] MEDS: Torsemide 20 MG TAB PO SCH (11:50)
[2023-04-05 13:56] VITALS: BP 102/58
== END 2023-04-05 13:15 | disposition home health service (06) | DRG 948 ==
LOC: NAV ACUTE 03-15 18:13
PROVIDERS: ADMIT Family Medicine; ATTEND Family Medicine
DX: R53.81 Other malaise (principal); I50.32 Chronic diastolic (congestive) heart failure; I13.0 Hypertensive heart and chronic kidney disease with heart failure and stage 1 through stage 4 chronic kidney disease, or unspecified chronic kidney disease; J96.11 Chronic respiratory failure with hypoxia; J96.12 Chronic respiratory failure with hypercapnia; I48.20 Chronic atrial fibrillation, unspecified; E46 Unspecified protein-calorie malnutrition; L03.116 Cellulitis of left lower limb; G47.33 Obstructive sleep apnea (adult) (pediatric); E78.5 Hyperlipidemia, unspecified; N40.0 Benign prostatic hyperplasia without lower urinary tract symptoms; E87.6 Hypokalemia; F01.50 Vascular dementia, unspecified severity, without behavioral disturbance, psychotic disturbance, mood disturbance, and anxiety; N18.32 Chronic kidney disease, stage 3b; E11.22 Type 2 diabetes mellitus with diabetic chronic kidney disease; E11.65 Type 2 diabetes mellitus with hyperglycemia; D63.1 Anemia in chronic kidney disease; F32.A Depression, unspecified; E83.42 Hypomagnesemia; G89.29 Other chronic pain; M54.9 Dorsalgia, unspecified; J98.6 Disorders of diaphragm; G62.9 Polyneuropathy, unspecified; Z90.49 Acquired absence of other specified parts of digestive tract; Z88.6 Allergy status to analgesic agent; Z79.01 Long term (current) use of anticoagulants; Z79.899 Other long term (current) drug therapy; I87.2 Venous insufficiency (chronic) (peripheral)
CPT/HCPCS: 36415; 36416; 80048; 80053; 80162; 83036; 83735; 83880; 84100; 84145; 85025; 86140; J1815; J3475